=== PATIENT | female | born 1995 | race Caucasian/White ===

== ENCOUNTER 2017-02-26 23:09 | Emergency (ER) | payer BC ==
[~2017-02-26] VITALS: Ht 162.6 cm; Wt 55.8 kg
[2017-02-26 23:11] VITALS: BP_SYST 132
[2017-02-26] MEDS ORDERED: LORazepam 1 MG TABLET PO ONE (23:30)
[2017-02-27 00:09] VITALS: BP_SYST 129
== END 2017-02-27 00:09 | disposition home or self-care (01) ==
LOC: SED 23:09
DX: F41.9 Anxiety disorder, unspecified (principal)
CPT/HCPCS: 71010; 93005; 99284

== ENCOUNTER 2018-10-03 10:35 | Outpatient (CLI) | payer BC | END 2018-10-03 19:14 | disposition home or self-care (01) | LOC: SUS 10:35 | PROVIDERS: ATTEND Family Medicine | DX: N83.202 Unspecified ovarian cyst, left side (principal); N83.201 Unspecified ovarian cyst, right side | CPT/HCPCS: 76830-TC; 76857 ==